=== PATIENT | female | born 1950 | race Caucasian/White ===

== ENCOUNTER 2019-06-16 12:44 | Outpatient (CLI) | payer MEDICARE, BC | END 2019-06-16 23:59 | disposition home or self-care (01) | LOC: RAD 12:44 | PROVIDERS: ATTEND Internal Medicine Infectious Disease | DX: A31.8 Other mycobacterial infections (principal); L02.211 Cutaneous abscess of abdominal wall; K65.1 Peritoneal abscess; Z79.2 Long term (current) use of antibiotics | CPT/HCPCS: 36573; C1751; Q9966 ==